=== PATIENT | female | born 1990 | race Caucasian/White ===

== ENCOUNTER 2016-09-21 15:05 | Inpatient (IN) | payer BC ==
[~2016-09-21] VITALS: Ht 170.2 cm; Wt 75.3 kg
[~2016-09-21 15:05] MED LIST: [UNRECOGNIZED DRUG - REMARK]
[2016-09-21] MEDS ORDERED: D5LR 1,000 ML IV SCH (15:20)
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
[2016-09-21] MEDS ORDERED: CALCIUM CARBONATE 500mg Chewable TAB PO PRN ×2 (15:30→23:00)
[2016-09-21] MEDS ORDERED: LIDOCAINE 1% (10mg/ml) 2ml SDV ID PRN (15:30)
[2016-09-21] MEDS ORDERED: MAG-AL + SIM LIQUID 30 ML UDC PO PRN ×2 (15:30→23:00)
[2016-09-21] MEDS ORDERED: ACETAMINOPHEN 500 MG TABLET PO PRN ×2 (15:30→23:00)
[2016-09-21] MEDS: LR 1,000 ML IV PRN ×3 (15:54→22:51)
[2016-09-21 16:00] LABS: HCT - HEMATOCRIT 33.6 % (36-46); HGB - HEMOGLOBIN 11.4 GM/DL (12-16); MEAN CORPUSCULAR HGB 31.3 UUG (26-34); MEAN CORPUSCULAR HGB CONC(MCHC 33.9 GM/DL (31-37); MEAN CORPUSCULAR VOLUME 92.3 UM3 (80-100); MEAN PLATELET VOLUME 12.3 UM3 (9.4-12.4); RED BLOOD COUNT 3.64 M/MM3 (4.00-5.20); WBC - WHITE BLOOD COUNT 10.4 T/MM3 (4.5-11.0)
--- NOTE | 2016-09-21 16:00 | ANESOB ---
Epidural/ Date/Time DATE: 09/21/16 TIME: 15:58 Preop Diagnosis Procedure: Labor Epidural Plan: Epidural Height: 5 ' 7.00 " Weight: kg BMI: kg/m2 P:3 Medications & Allergies Inpatient Medications Current Medications Medications (Trade) Dose Ordered Sig/Moris Start Time Stop Time Status Last Admin Dose Admin Lidocaine HCl 0.2 mg 0.2 mg PRN PRN 09/21/16 15:30 UNV Dextrose/Lactated Ringer's 1,000 ml @ 125 mls/hr Q8H 09/21/16 15:20 UNV Lactated Ringer's (Lactated Ringers) 1,000 ml @ 0 mls/hr Q0M PRN 09/21/16 15:20 UNV 09/21/16 15:54 0 MLS/HR Acetaminophen (Tylenol Extra Strength) 1-2 TABS = 500-1,000 MG Q4H PRN 09/21/16 15:30 UNV Al Hydroxide/Mg Hydroxide (Maalox) 30 ml Q4H PRN 09/21/16 15:30 UNV Calcium Carbonate (TUMS Regular Strength) 1-2 TABS Q2H PRN 09/21/16 15:30 UNV [no known meds] , (Reported) Coded Allergies: No Known Drug Allergies (Verified Allergy, Unknown, 05/01/10) Medical/Surgical History Anesthesia PMH: Denies: *Angina, *Diabetes, *Hypertension, *TN, Anesthesia Reactions (NO AIRWAY ISSUES KNOWN), Asthma, CHF, COPD, CVA/Stroke/TIA, Cancer, Clotting Problems, Glaucoma, Hiatal Hernia, Malignant Hyperthermia, Pneumonia, Reflux, Seizures, Tuberculosis Smoking Status: Never smoker Does patient use chewing tobac: No Substance Use Type: does not use Alcohol Intake: none Anesthesia Adverse Reactions: FOUND nausea and vomiting Family Hx of Anesthesia Advers: none Hx of Motion Sickness: No Complications During : No Physical Exam Respiratory: Lungs clear Cardiovascular: Regular rate, rhythm Airway Assessment Mallampati Score: I TMD: 3 Fingerbreadths Neck Extension: Good Overall Assessment: May Be Diff Mask Vent., May Be Diff Intubation ASA: 2 Discussion Discussed risks/options/alternatives of anesthesia. Patient consents. Nursing pain assessment noted. Attestation Statement Prior to the delivery of any anesthetic medication, I examined the patient, developed the plan, obtained the patient's consent and discussed the risk and benefits of the procedure with the patient/guardian. If the note happens to be signed after anesthesia start time, it is only due to providing efficient care of the patient and documenting at a time when the computer is available. EWELINA DESAI CRNA September 21, 2016 16:00
[2016-09-21 16:04] VITALS: BP 130/60; PULSE 91; RESP 16; TEMP 98.4
[2016-09-21] MEDS ORDERED: PREN1TAB73 PO (16:49)
[2016-09-21] MEDS ORDERED: D5LR 1,000 ML IV PRN (18:15)
[2016-09-21] MEDS ORDERED: OXYTOCIN 30 UNIT in D5LR 500 ML SCH (18:15)
[2016-09-21] MEDS ORDERED: ROPIVACAINE 1% 200 MG, SUFENTANIL 50 MCG in NORMAL SALINE 80 ML EPI PRN (22:30)
[2016-09-21] MEDS ORDERED: NALOXONE 0.4mg/ml INJECTION IV PRN (22:30)
[2016-09-21] MEDS ORDERED: DiphenhydrAMINE 50 MG/ML INJECTION IV PRN (22:30)
[2016-09-21] MEDS ORDERED: ONDANSETRON 4mg/2ml INJECTION IV PRN ×2 (22:30→23:00)
[2016-09-21] MEDS ORDERED: OXYTOCIN 30 UNIT in D5W 500 ML IV ONE (22:58)
[2016-09-21] MEDS ORDERED: HYDROCORTISONE 2.5% CREAM 30 GM RECTALLY PRN (23:00)
[2016-09-21] MEDS ORDERED: MILK OF MAGNESIA 30 ML SUSP PO PRN (23:00)
[2016-09-21] MEDS ORDERED: PHENYLEPHRINE RECTAL SUPPOSITORY RECTALLY PRN (23:00)
[2016-09-21] MEDS ORDERED: DiphenhydrAMINE 25 MG CAPSULE PO PRN (23:00)
[2016-09-22] MEDS: IBUPROFEN 800 MG TABLET PO PRN ×3 (01:42→19:30)
[2016-09-22] MEDS: HYDROCODONE/APAP 5 mg/325 mg TABLET PO PRN ×4 (01:43→23:32)
[2016-09-22 02:07] VITALS: BP 110/55; PULSE 65; RESP 16; TEMP 98.2; O2SAT 98
[2016-09-22 05:22] LABS: HCT - HEMATOCRIT 32.4 % (36-46); HGB - HEMOGLOBIN 10.9 GM/DL (12-16); MEAN CORPUSCULAR HGB 31.2 UUG (26-34); MEAN CORPUSCULAR HGB CONC(MCHC 33.6 GM/DL (31-37); MEAN CORPUSCULAR VOLUME 92.8 UM3 (80-100); MEAN PLATELET VOLUME 12.9 UM3 (9.4-12.4); RED BLOOD COUNT 3.49 M/MM3 (4.00-5.20); WBC - WHITE BLOOD COUNT 15.9 T/MM3 (4.5-11.0)
[2016-09-22 06:30] VITALS: BP 101/55; PULSE 68; RESP 16; TEMP 97.9; O2SAT 100
[2016-09-22] MEDS: DOCUSATE CALCIUM 240 MG CAPSULE PO SCH (09:09)
--- NOTE | 2016-09-22 11:07 | PNPDOC ---
Progress Note PPD1 Rubella: Immune GBS: Positive Blood Type:O pos Subjective 09/22/16 Lochia: Minimal Pain: Controlled Voiding: Voiding Nausea and Vomiting: No Nausea/Vomiting Objective Vital Signs Date Time Temp Pulse Resp B/P Pulse Ox O2 Delivery O2 Flow Rate FiO2 09/22/16 06:30 97.9 68 16 101/55 100 Room Air General: Alert and Oriented Abdomen: Fundus Firm, Non-tender Extremities: Non-tender Laboratory Item Value Date Time White Blood Count 10.4 T/MM3 09/21/16 1553 White Blood Count 15.9 T/MM3 H # 09/22/16 0441 Hemoglobin 11.4 GM/DL L 09/21/16 1553 Hemoglobin 10.9 GM/DL L 09/22/16 0441 Platelet Count 144 T/MM3 09/21/16 1553 Platelet Count 131 T/MM3 09/22/16 0441 Assessment SP, Plan Routine Care Expected date of discharge: September 23, 2016 Dr Carr to resume care tomorrow. GBS is negative-document above is in error. LAVERNE ARZATE MD September 22, 2016 11:07
[2016-09-22 11:09] VITALS: BP 130/60; PULSE 91; RESP 16; TEMP 98.4
[2016-09-22 11:23] VITALS: BP 111/68; PULSE 72; RESP 16; TEMP 98.1; O2SAT 100
--- NOTE | 2016-09-22 15:02 | NUR ---
Shift Summary Pt VSS throughout this shift. Pt fundus firm. Scant amount of rubra lochia. Pt up and around in room. voiding. Taking ibuprofen and norco for discomfort with cramping. Tolerating a regular diet. is going well. Encouraged mom to call with any questions or concerns.
[2016-09-22 15:30] VITALS: BP 120/66; PULSE 68; RESP 16; TEMP 98.5
--- NOTE | 2016-09-22 21:40 | NUR ---
Care Assumed Report from Chi Benjamin RN. Care assumed. Pt resting in bed. Reporting mild cramping pain in lower abdomen. Refuses pain meds at this time. Warm rice bag given. Discussed POC with pt. Verbalizes understanding. Doing well with self and cares. Denies further needs at this time.
[2016-09-22 23:30] VITALS: BP 123/70; PULSE 66; RESP 16; TEMP 98
--- NOTE | 2016-09-22 23:30 | NUR ---
Status VSS. Pt rating pain 4/10. Two norco given as ordered. Pt states she did not sleep last night and was not able to sleep during the day today. [facility] Pt refused at this time. Pt encouraged to rest and call PRN. Denies needs at this time.
--- NOTE | 2016-09-23 00:58 | NUR ---
Chart Check 24 hour chart check completed
[2016-09-23 06:02] VITALS: BP 117/67; PULSE 68; RESP 16; TEMP 98.1
[2016-09-23] MEDS: IBUPROFEN 800 MG TABLET PO PRN ×2 (08:57→16:31)
[2016-09-23] MEDS: DOCUSATE CALCIUM 240 MG CAPSULE PO SCH (08:57)
[2016-09-23] MEDS: HYDROCODONE/APAP 5 mg/325 mg TABLET PO PRN ×2 (09:24→16:31)
[2016-09-23 14:22] VITALS: BP 117/69; PULSE 76; RESP 16; TEMP 98.1
--- NOTE | 2016-09-23 14:33 | NUR ---
Shift Summary Pt providing cares for self and baby in room. Tolerating regular diet. Voiding without difficulty. Pain controlled with po medications. Lanolin provided per pt's request. Pain would like to dismiss to home this PM.
[2016-09-23] MEDS ORDERED: DOCU240C40 PO (15:49)
[2016-09-23] MEDS ORDERED: HYDR-4246 PO (15:49)
[2016-09-23] MEDS ORDERED: IBUP-1547 PO (15:49)
[2016-09-23] MEDS ORDERED: SERT50TA12 PO (15:49)
--- NOTE | 2016-09-23 15:58 | DSPDOC ---
Discharge Summary Reason for Hospitalization: [facility] Discharge Date: September 23, 2016 Admission Date: September 21, 2016 at 15:18 Pertinent Findings / Hospital Course / Treatment: Rubella: Immune GBS: Negative Blood Type:O pos Estimated Blood Loss "ml": 350 Procedures: Final Diagnosis: P:3 Problems: (1) depression Assessment & Plan: pt was on citalopram prior to , but is feeling very tearful at PPD #2 so will start her on zoloft since she is breast-feeding, she has taken in past & has tolerated Weeks: 38 Days: 6 Viable Male APGARS: Name: Paras Villarreal Weight "grams": 3382 General 2 Discharge Instructions: Maternal Child Mother Dismissal Instructions Given (diet, activity, and medications, follow-up) Home Medications Scheduled Docusate Calcium (Stool Softener), 240 MG PO DAILY Pnv95/Ferrous Fumarate/FA ( Tablet), 1 TAB PO DAILY, (Reported) Sertraline (Sertraline), 50 MG PO DAILY Scheduled PRN Hydrocodone/Acetaminophen ([place] 5-325 Tablet), 1 TAB PO Q4H PRN for PAIN Ibuprofen (Ibuprofen), 800 MG PO Q8H PRN for PAIN Miscellaneous Medications [no known meds], (Reported) NAV WEEKS MD September 23, 2016 15:53
[2016-09-23 16:43] VITALS: BP 125/66; PULSE 80; RESP 16; TEMP 98
== END 2016-09-23 17:45 | disposition home or self-care (01) | DRG 775 ==
LOC: MC 15:05 → OBOBS 15:05 → MC 15:18 → OBOBS 15:18 → MC 09-22 10:15
PROVIDERS: ADMIT Family Medicine; ATTEND Family Medicine
PROC: 10E0XZZ Delivery of Products of Conception, External Approach (ICD-10-PCS; principal; 2016-09-21)
DX: O42.02 Full-term premature rupture of membranes, onset of labor within 24 hours of rupture (principal); O69.2XX0 Labor and delivery complicated by other cord entanglement, with compression, not applicable or unspecified; F53 Mental and behavioral disorders associated with the puerperium, not elsewhere classified; Z3A.38 38 weeks gestation of pregnancy; Z37.0 Single live birth
CPT/HCPCS: 36415; 84112; 85027

== ENCOUNTER 2016-10-08 15:07 | Emergency (ER) | payer BC ==
[~2016-10-08] VITALS: Ht 170.2 cm; Wt 66.0 kg
[~2016-10-08 15:07] MED LIST changes: +DOCU240C40 PO; +HYDR-4246 PO; +IBUP-1547 PO; +PREN1TAB73 PO; +SERT50TA12 PO; -[UNRECOGNIZED DRUG - REMARK]
[2016-10-08 15:11] VITALS: TEMP 97.7; Ht 170.2 cm; Wt 66.0 kg
[2016-10-08] MEDS ORDERED: DOCU240C25 PO (15:22)
[2016-10-08] MEDS ORDERED: HYDR-4246 PO (15:23)
[2016-10-08] MEDS ORDERED: IBUP-1547 PO (15:24)
[2016-10-08] MEDS ORDERED: SERT50TA PO (15:25)
[2016-10-08] MEDS ORDERED: PREN1TAB73 PO (15:25)
[2016-10-08] MEDS ORDERED: POLY17PO6 PO (15:26)
--- NOTE | 2016-10-08 15:54 | ERPDOC ---
Departure Disposition Decision Date: October 08, 2016 Disposition Decision Time: 17:14 Impression Impression Impression: Primary Impression: Mastitis, Seen By: Mid-level only Referrals: NAV WEEKS MD (Family) Patient Instructions: Mastitis (ED) Problems/Meds/Labs Reviewed?: Yes Additional Instructions: Take cephalexin 500mg four times daily for 7days. Stay well hydrated, drink 2-3 quarts of water daily. Warm compresses to left breast. Follow treatment plan (see discharge packet). Follow as needed with Dr. Haddad. Follow up care ordered?: Yes Mental Status: Alert, Oriented Scripts Cephalexin (Cephalexin) 500 Mg Tablet 1 TAB PO QID for 7 Days, #28 TAB Prov: SILVIABARTOLO A THERMOSTATIC CONTROLS SUPERVISOR 10/08/16 HPI - Skin General General Chief Complaint: Skin Rash/Abscess Stated Complaint: MASTITIS Time Seen by Provider: 15:39 Source: patient HPI - Skin General Initial Comments 26-year-old female presents to ER feeling "lightheaded, aching all over, pain in left breast with redness" patient is approximately 2 weeks . States that she began having pain in left breast yesterday. Noticed redness today. States that she felt nauseated earlier and his chest felt lightheaded and achy today. Patient has been taking 800 mg of ibuprofen every 8 hours for pain. Took 1 [place] 5/325 today. Patient denies fever, chills, vomiting or dysuria. Pain Scale: Now: 4/10 (left breast) Associated Symptoms: DENIES: blisters, fever, petechiae Allergies: Coded Allergies: No Known Drug Allergies (Verified Allergy, Unknown, 05/01/10) Past History Past Medical History Pt denies signifigant PMH Family History Family PMH: FOUND: [place], diabetes, hypertension Vaccines Hx Influenza Vaccination: Yes (FALL 2013) Hx Pneumococcal Vaccination: No Social History Does patient use chewing tobac: No Substance Use Type: does not use Alcohol Intake: none Review of Systems Constitutional Constitutional: DENIES: chills, fever, weakness Eyes General: DENIES: erythema, exudate Lids/Accessories: DENIES: erythema, swelling ENMT Ears: DENIES: pain Hearing: DENIES: hearing loss Sinuses: DENIES: congestion, rhinorrhea Mouth/Throat: DENIES: sore throat Cardiovascular Cardiac: DENIES: chest pain, murmur Rhythm/Rate: DENIES: palpitations Pulmonary Respiratory: DENIES: cough, dyspnea GI Upper Abdomen: DENIES: nausea, pain, vomiting Lower Abdomen: DENIES: diarrhea, pain General: DENIES: dysuria, pain Musculoskeletal General: pain, see HPI Integumentary Skin: DENIES: color change, itching, rash Neurological General: DENIES: ataxia, change in strength, numbness, paralysis/paresis, weakness Psychiatric Psychiatric: DENIES: anxiety, depression, nervousness Physical Exam General General Nourishment: well nourished, well developed, adult General Body Habitus: well groomed Vitals and Pain First Documented Vital Signs Date Time Temp Pulse Resp B/P Pulse Ox O2 Delivery O2 Flow Rate FiO2 10/08/16 15:11 97.7 92 18 115/70 97 Room Air Weight: Kilograms: 66.000 Height (feet): 5 Height (inches): 7.00 Triage Pain Scale: Eyes (brief) Eyes Brief: found: EOMI ENMT (brief) ENMT Brief: NOT FOUND: nasal exudate, nasal swelling Neck (brief) Neck: FOUND: trachea midline Respiratory (brief) Respiratory: FOUND: clear all becerra, equal bilaterally, symmetrical Respiratory Breasts: FOUND: erythema (erythema circumferentially of area on left breast), symmetric, tenderness (left breast TTP), NOT FOUND: mass Cardiovascular (brief) Cardiac: FOUND: regular rate, regular rhythm Musculoskeletal (brief) Musculoskeletal Brief: NOT FOUND: deformity, loss of motion Integumentary (brief) Integumentary Brief: FOUND: dry, warm Neurologic (brief) Neurological Brief: FOUND: motor-no gross deficits, sensory-no gross deficits Psychiatric (brief) Psychiatric Brief: FOUND: alert, normal affect Differential Diagnoses Considering: Abscess, Cellulitis, Other (mastitis) Progress Results/Orders Orders Procedure Category Date Status Time Cbc W/Auto LAB 10/08/16 Complete Diff-Reflex Manual Bmp - Basic Metabolic LAB 10/08/16 Complete Panel Ua, Dip Wreflex LAB 10/08/16 Complete Microsc & Outpatient Therapist 16:00 Iv Lock (Ed Only) EDM 10/08/16 Transmitted 16:00 Normal Saline (Normal PHA 10/08/16 Complete Saline Iv) 16:00 Lab Results Laboratory Tests Test 10/08/16 16:00 10/08/16 16:22 Urine Collection Type Cleancatch-midstream Urine Color Yellow Urine Turbidity Clear Urine pH 7.0 Urine Specific [place] 1.010 Urine Protein Negative Urine Glucose (UA) Negative Urine Ketones Negative Urine Blood Negative Urine Nitrite Negative Urine Bilirubin Negative Urine Urobilinogen 0.2EU/DL Urine Leukocyte Esterase Negative Urinalysis Comment Microscopic not ind. White Blood Count 13.1T/MM3 Red Blood Count 4.21M/MM3 Hemoglobin 13.0GM/DL Hematocrit 37.5% Mean Corpuscular Volume 89.1UM3 Mean Corpuscular Hemoglobin 30.9UUG Mean Corpuscular Hemoglobin Concent 34.7GM/DL RDW Standard Deviation 37.2FL Platelet Count 198T/MM3 Mean Platelet Volume 10.9UM3 Immature Granulocyte % (Auto) % Neutrophils (%) (Auto) % Lymphocytes (%) (Auto) % Monocytes (%) (Auto) % Eosinophils (%) (Auto) % Basophils (%) (Auto) % Absolute Immature Granulocyte (auto T/MM3 Absolute Neutrophils (auto) T/MM3 Absolute Lymphocytes (auto) T/MM3 Absolute Monocytes (auto) T/MM3 Absolute Eosinophils (auto) T/MM3 Absolute Basophils (auto) T/MM3 Neutrophils % (Manual) 91.0% Band Neutrophils % 1.0% Lymphocytes % (Manual) 6.0% Monocytes % (Manual) 2.0% Absolute Neutrophils (Manual) 11.9T/MM3 Band Neutrophils # 0.1T/MM3 Lymphocytes # (Manual) 0.8T/MM3 Monocytes # (Manual) 0.3T/MM3 Red Cell Morphology Comment Normal Turbidity < 20 Sodium Level 144MEQ/L Potassium Level 3.6MEQ/L Chloride Level 111MEQ/L Carbon Dioxide Level 19MEQ/L Anion Gap 14MEQ/L Blood Urea Nitrogen 20.0MG/DL Creatinine 0.9MG/DL Glomerular Filtration Rate Calc 75 BUN/Creatinine Ratio 22RATIO Glucose Level 96MG/DL Calculated Osmolality 280MOSM/KG Calcium Level 9.8MG/DL Icterus Index < 2 Chemistry Specimen Hemolysis < 15 Medications Current ED Medications Sodium Chloride (Normal Saline IV) 1,000 ml @ 0 mls/hr Q0M ONCE IV Last administered on 10/08/16 16:23; Start 10/08/16 at 16:00; Stop 10/08/16 at 16:03 ; Status DC BARTOLO VEGA APRN October 08, 2016 15:54
--- NOTE | 2016-10-08 15:56 | NUR ---
PROVIDER Rashida VEGA APRN AT BEDSIDE FOR EXAM.
[2016-10-08] MEDS ORDERED: NORMAL SALINE 1,000 ML IV ONE (16:00)
--- NOTE | 2016-10-08 16:25 | NUR ---
STATUS PT RESTING IN CART. DENIES NEEDS AT THIS TIME. REPORTS NO CHANGE IN PAIN. IVF RUNNING. CALL LIGHT WITHIN REACH. WILL CONTINUE TO MONITOR.
[2016-10-08 16:27] LABS: HCT - HEMATOCRIT 37.5 % (36-46); MEAN CORPUSCULAR HGB 30.9 UUG (26-34); MEAN CORPUSCULAR HGB CONC(MCHC 34.7 GM/DL (31-37); MEAN CORPUSCULAR VOLUME 89.1 UM3 (80-100); MEAN PLATELET VOLUME 10.9 UM3 (9.4-12.4); RED BLOOD COUNT 4.21 M/MM3 (4.00-5.20); WBC - WHITE BLOOD COUNT 13.1 T/MM3 (4.5-11.0)
[2016-10-08 16:30] LABS: BLOOD, URINE NEGATIVE (NEGATIVE); COLOR,URINE YELLOW (YELLOW); LEUKOCYTE ESTERASE ,URINE NEGATIVE (NEGATIVE); NITRITE,URINE NEGATIVE (NEGATIVE); UROBILINOGEN,URINE 0.2 EU/DL (NORMAL)
[2016-10-08 16:37] LABS: ANION GAP 14 MEQ/L (5-15); BUN/CREATININE RATIO 22 RATIO (6-26); CALCIUM 9.8 MG/DL (8.4-10.2); CHLORIDE 111 MEQ/L (98-107); CO2 - CARBON DIOXIDE 19 MEQ/L (22-30); CREATININE 0.9 MG/DL (0.7-1.2); GLOMERULAR FILTRATION RATE 75; GLUCOSE 96 MG/DL (65-110); POTASSIUM 3.6 MEQ/L (3.6-5); SODIUM 144 MEQ/L (134-144)
[2016-10-08 16:41] LABS: BAND NEUTROPHILS # 0.1 T/MM3; LYMPHOCYTES # (MANUAL) 0.8 T/MM3 (1-4.8); MONOCYTES # (MANUAL) 0.3 T/MM3 (0-0.8); NEUTROPHILS #(MANUAL)-ABSOLUTE 11.9 T/MM3 (1.8-7.7); TOTAL CELLS COUNTED 100 %
--- NOTE | 2016-10-08 17:11 | NUR ---
PROVIDER Rashida VEGA APRN AT BEDSIDE TO SPEAK WITH PT.
[2016-10-08] MEDS ORDERED: CEPH500T PO (17:16)
--- NOTE | 2016-10-08 17:17 | NUR ---
RX KEFLEX 500MG QID X7DAYS CALLED TO ASHLEY MCCLURE PER REQUEST AT THIS TIME.
[2016-10-08 17:30] VITALS: BP 103/61; PULSE 81; RESP 14; O2SAT 97
[2016-10-08] MEDS ORDERED: CEPHALEXIN 500 MG CAPSULE PO ONE (17:30)
== END 2016-10-08 17:30 | disposition home or self-care (01) ==
LOC: ED 15:07
DX: O91.22 Nonpurulent mastitis associated with the puerperium (principal)
CPT/HCPCS: 80048; 81003; 85025; 96360; 99284; J7030